=== PATIENT | female | born 1955 | race Caucasian/White ===

== ENCOUNTER 2018-05-26 14:06 | Emergency (ER) | payer OTHER ==
[2018-05-26] MEDS ORDERED: ALPRAZolam 0.25 MG TABLET PO ONE (14:14)
--- NOTE | 2018-05-26 14:15 | PDOC ---
History of Present Illness - General History Source: Patient Exam Limitations: No Limitations <Ha Tim - Last Filed: 05/26/18 15:33> <Macario Snider - Last Filed: 05/26/18 18:17> - General Stated Complaint: CHEST PAIN Time Seen by Provider: 05/26/18 14:14 - History of Present Illness Initial Comments: 05/26/18 15:33 The patient is a 63 year old female with a significant PMH of diabetes, hypertension, anxiety, appendectomy and cholecystectomy who presents to the emergency department with chest pain since earlier this afternoon. The patients has been overheard stating that she wants to go with her mother, who passed in the ER several hours ago. The patient states that she began to feel some associated chest pressure soon after being notified of her mother's . The patient has been tearful at bedside. No other complaints at bedside. (Ha Tim) Past History <Ha Tim - Last Filed: 05/26/18 15:33> - Past Medical History Diabetes: Yes (NEW ONSET DM2) HTN: Yes - Surgical History Appendectomy: Yes Cholecystectomy: Yes - Suicide/Smoking/Psychosocial Hx Smoking Status: No Smoking History: Never smoked Number of Cigarettes Smoked Daily: 0 <Macario Snider - Last Filed: 05/26/18 18:17> - Past Medical History Allergies/Adverse Reactions: Allergies Allergy/AdvReac Type Severity Reaction Status Date / Time codeine [Codeine] Allergy Verified 05/26/18 14:33 Home Medications: Ambulatory Orders Alprazolam [Xanax] 0.5 mg PO DAILY 11/12/12 Atenolol [Tenormin] 25 mg PO DAILY 11/12/12 Duloxetine HCl [Cymbalta] 60 mg PO HS 11/22/12 Ibuprofen/Famotidine [Duexis 800-26.6 mg Tablet] 1 each PO DAILY 11/22/12 Atenolol [Tenormin -] 25 mg PO DAILY #0 tablet 11/24/12 Gabapentin [Neurontin] 400 mg PO TID #0 capsule 11/24/12 Ondansetron [Zofran -] 4 mg PO BID PRN #10 tablet 11/24/12 clonazePAM [Klonopin -] 0.5 mg PO BID #0 tablet 11/24/12 Review of Systems - Review of Systems Able to Perform ROS?: Yes <Ha Tim - Last Filed: 05/26/18 15:33> <Macario Snider - Last Filed: 05/26/18 18:17> - Review of Systems Comments:: 05/26/18 15:33 Constitutional - Pt denies Fever, Chills, weakness, HEENT: denies vision changes, sore throat Respiratory: Denies cough, sob, hemoptysis Cardiac: (+)chest pressure. denies palpitations, light headedness, leg swelling Abd/GI: denies abd pain, nausea, vomiting, blood per rectum, melena, diarrhea : denies dysuria, frequency, discharge Musculskelatal - denies back pain, joint swelling skin - denies bruising, erythema, rash neurological: denies headache, numbness, focal weakness, tingling, ataxia, weakness hematologic: denies anemia, easy bruising, easy bleeding (Ha Tim) *Physical Exam <Ha Tim - Last Filed: 05/26/18 15:33> <Macario Snider - Last Filed: 05/26/18 18:17> - Vital Signs Last Vital Signs Temp Pulse Resp BP Pulse Ox 97.8 F 87 18 134/87 100 05/26/18 14:33 05/26/18 17:54 05/26/18 17:54 05/26/18 17:54 05/26/18 17:54 - Physical Exam Comments: 05/26/18 15:49 GENERAL: The patient is awake, alert, and fully oriented, Nontoxic - in no acute distress. HEAD: Normocephalic, atraumatic. EYES: extraocular movements intact, sclera anicteric, conjunctiva clear. ENT: Normal voice, Moist mucous membranes. NECK: Normal range of motion, supple LUNGS: Breath sounds equal, clear to auscultation bilaterally. No wheezes, no rhonchi, no rales. HEART: slightly tachcyardic ABDOMEN: Soft, nontender, normoactive bowel sounds. No guarding, no rebound. . No CVA tenderness EXTREMITIES: Normal range of motion, no edema. No clubbing or cyanosis. No cords, erythema, or tenderness. NEUROLOGICAL: No facial assymetry, Normal speech, PSYCH: tearful affect SKIN: Warm, Dry, normal turgor, (Macario Snider) Heart Score/ECG Review <Ha Tim - Last Filed: 05/26/18 15:33> <Macario Snider - Last Filed: 05/26/18 18:17> - ECG Impressions Comment:: 05/26/18 17:49 Twelve-lead EKG was performed and reviewed by me. There is normal sinus rhythm with a normal rate. rate of 90 The axis is normal. (Macario Snider) ED Treatment Course - LABORATORY CBC & Chemistry Diagram: 05/26/18 16:12 05/26/18 16:12 <Macario Snider - Last Filed: 05/26/18 18:17> - ADDITIONAL ORDERS Additional order review: Laboratory Results 05/26/18 16:12 Sodium 141 Potassium 3.6 Chloride 108 H Carbon Dioxide 21 Anion Gap 11 BUN 10 Creatinine 0.7 Creat Clearance w eGFR > 60 Random Glucose 111 H Calcium 9.9 Total Bilirubin 1.0 AST 19 ALT 32 Alkaline Phosphatase 52 Creatine Kinase 65 Troponin I < 0.02 Total Protein 7.3 Albumin 4.2 05/26/18 16:12 RBC 5.48 H MCV 85.2 MCHC 32.9 RDW 13.2 MPV 8.5 Neutrophils % 76.6 Lymphocytes % 16.2 D Monocytes % 6.7 D Eosinophils % 0.1 Basophils % 0.4 D - Medications Given in the ED: ED Medications Discontinued Medications Generic Name Dose Route Start Last Admin Trade Name Forestq PRN Reason Stop Dose Admin Acetaminophen 650 mg 05/26/18 17:21 05/26/18 17:53 Tylenol - PO 05/26/18 17:22 650 mg ONCE ONE Administration Alprazolam 0.25 mg 05/26/18 14:14 05/26/18 14:38 Xanax - PO 05/26/18 14:15 0.25 mg ONCE ONE Administration Sodium Chloride 1,000 mls @ 1,000 mls/hr 05/26/18 17:21 05/26/18 17:54 Normal Saline - IV 05/26/18 18:20 Not Given .Q1H ONE Metoclopramide HCl 10 mg 05/26/18 17:21 05/26/18 17:53 Reglan Injection - IVPUSH 05/26/18 17:22 Not Given ONCE ONE Metoclopramide HCl 10 mg 05/26/18 17:49 05/26/18 17:53 Reglan - PO 05/26/18 17:50 10 mg ONCE ONE Administration Medical Decision Making <Ha Tim - Last Filed: 05/26/18 15:33> <Macario Snider - Last Filed: 05/26/18 18:17> - Medical Decision Making 05/26/18 15:48 63y presenting with complaint of chest pain in setting of being told that her mother had . denies any prior symptoms pt iwth tearful affect here will obtain ekg, basic labs pt also complaining of wanting to join her motnher multiple times and is very tearful will give pt xanax suspect grief reaction 05/26/18 18:13 the patint states she does not want to hurt herself - states someone eneds to take care of her monthers arrangement dw with patient that she can return at any time if she has anythughts of harming herself. pt can return to discuss with psych. pt staes she will not hurt herself, but if she does she will come back to us. will dc with pmd fu return precautions were discussed (Macario Snider) *DC/Admit/Observation/Transfer <Ha Tim - Last Filed: 05/26/18 15:33> - Discharge Dispostion Decision to Admit order: No <Macario Snider - Last Filed: 05/26/18 18:17> Diagnosis at time of Disposition: Grief reaction Chest pain Qualifiers: Chest pain type: unspecified Qualified Code(s): R07.9 - Chest pain, unspecified - Discharge Dispostion Disposition: HOME Condition at time of disposition: Stable - Referrals Referrals: Deonte Bach MD [Staff Physician] - - Patient Instructions Printed Discharge Instructions: DI for Atypical Chest Pain Additional Instructions: If you have any concerns, including chest pain, dizziness, palpitations, any thoughts of wanting to hurt yourself please return to the emergency department for further evaluation. Print Language: IRANIAN - Post Discharge Activity - Attestations Scribe Attestion: 05/26/18 15:34 Documentation prepared by Ha Tim, acting as certified medical coding specialist for Macario Snider MD. (Ha Tim)
[2018-05-26 14:35] VITALS: TEMP 97.8; BMI 31.9
[2018-05-26] MEDS ORDERED: ALPRAZolam 0.25 MG TABLET ONE (14:36)
[2018-05-26 16:22] LABS: BASO % 0.4 % (0-2.0); EOS % 0.1 % (0-4.5); HEMATOCRIT 46.7 % (32.4-45.2); HEMOGLOBIN 15.3 GM/dL (10.7-15.3); LYMPH % 16.2 % (8-40); MCHC 32.9 g/dl (32.0-36.0); MEAN CELL VOLUME 85.2 fl (80-96); MEAN PLT VOLUME 8.5 fl (7.5-11.1); MONO % 6.7 % (3.8-10.2); NEUT % 76.6 % (42.8-82.8); PLATELET COUNT 312 K/MM3 (134-434); RBC 5.48 M/mm3 (3.60-5.2); RDW 13.2 % (11.6-15.6); WHITE BLOOD COUNT 11.9 K/mm3 (4.0-10.0)
[2018-05-26 16:56] LABS: ALBUMIN 4.2 g/dl (3.4-5.0); ALK PHOS 52 U/L (45-117); ANION GAP 11 MMOL/L (8-16); BLOOD UREA NITROGEN 10 mg/dL (7-18); CALCIUM 9.9 mg/dL (8.5-10.1); CHLORIDE 108 mmol/L (98-107); CO2 21 mmol/L (21-32); CREATININE 0.7 mg/dL (0.55-1.3); GLUCOSE,RANDOM 111 mg/dL (74-106); POTASSIUM 3.6 mmol/L (3.5-5.1); SGOT/AST 19 U/L (15-37); SGPT/ALT 32 U/L (13-61); SODIUM 141 mmol/L (136-145); TOT PROT 7.3 g/dl (6.4-8.2)
[2018-05-26] MEDS ORDERED: ACETAMINOPHEN 325 MG TABLET (FP) PO ONE (17:21)
[2018-05-26] MEDS ORDERED: METOCLOPRAMIDE HCL INJECTION 10 MG/2 ML VIAL IVPUSH ONE (17:21)
[2018-05-26] MEDS ORDERED: SODIUM CHLORIDE 1,000 ML IV ONE (17:21)
[2018-05-26] MEDS ORDERED: ACETAMINOPHEN 325 MG TABLET (FP) ONE (17:49)
[2018-05-26] MEDS ORDERED: METOCLOPRAMIDE HCL 10 MG TABLET (FP) PO ONE ×2 (17:49)
[2018-05-26 17:55] VITALS: BP 134/87; PULSE 87
--- NOTE | 2018-05-27 18:04 | EKG ---
Test Reason : Blood Pressure : / mmHG Vent. Rate : 090 BPM Atrial Rate : 090 BPM P-R Int : 142 ms QRS Dur : 076 ms QT Int : 350 ms P-R-T Axes : 041 -06 024 degrees QTc Int : 428 ms POOR DATA QUALITY, INTERPRETATION MAY BE ADVERSELY AFFECTED NORMAL SINUS RHYTHM POSSIBLE LEFT ATRIAL ENLARGEMENT BORDERLINE ECG WHEN COMPARED WITH ECG OF 22-NOV-2012 12:38, VENT. RATE HAS INCREASED BY 34 BPM INVERTED T WAVES HAVE REPLACED NONSPECIFIC T WAVE ABNORMALITY IN ANTERIOR LEADS Confirmed by SANDRA HOUSER MD ([id number]) on 05/27/2018 6:04:02 PM Referred By: Confirmed By:SANDRA HOUSER MD
== END 2018-05-26 18:33 | disposition home or self-care (01) ==
LOC: JER 14:06
DX: R07.9 Chest pain, unspecified (principal); F43.29 Adjustment disorder with other symptoms; Z63.4 Disappearance and death of family member; I10 Essential (primary) hypertension; E11.9 Type 2 diabetes mellitus without complications; Z79.84 Long term (current) use of oral hypoglycemic drugs
CPT/HCPCS: 36415; 80053; 82550; 84484; 85025; 93005; 93010; 99282-25

== ENCOUNTER 2018-06-09 15:10 | Emergency (ER) | payer OTHER ==
[2018-06-09] MEDS ORDERED: ASPIRIN 81 MG CHEWABLE TABLETS PO ONE (16:20)
--- NOTE | 2018-06-09 16:24 | PDOC ---
Rapid Medical Evaluation Chief Complaint: Chest Pain Time Seen by Provider: 06/09/18 16:18 Medical Evaluation: Allergies Allergy/AdvReac Type Severity Reaction Status Date / Time codeine [Codeine] Allergy Verified 05/26/18 14:33 06/09/18 16:19 c/o chest pain at 1.30pm while sitting in the car today. HRT 140 today in the pharmacy. recently lost mom and is very upset. PMHX: herniated disc pmd: Dr. Alyssia blackman Pe: patient alert ox3. A: chest pain P: labs patient to the ER for further management of care. Discharge Disposition - Diagnosis Chest pain Qualifiers: Chest pain type: unspecified Qualified Code(s): R07.9 - Chest pain, unspecified - Discharge Dispostion Last Admission D/C Date: 11/24/12 - Referrals Referrals: Alyssia Blackman MD [Primary Care Provider] - - Patient Instructions - Post Discharge Activity
[2018-06-09 16:28] VITALS: BP 135/87; PULSE 102; TEMP 98.3; BMI 31.4
[2018-06-09 17:29] LABS: BASO % 0.4 % (0-2.0); EOS % 0.5 % (0-4.5); HEMOGLOBIN 16.6 GM/dL (10.7-15.3); MCH 28.9 pg (25.7-33.7); MCHC 33.8 g/dl (32.0-36.0); MEAN CELL VOLUME 85.5 fl (80-96); MEAN PLT VOLUME 8.6 fl (7.5-11.1); MONO % 8.6 % (3.8-10.2); NEUT % 62.5 % (42.8-82.8); PLATELET COUNT 310 K/MM3 (134-434); RBC 5.73 M/mm3 (3.60-5.2); RDW 13.4 % (11.6-15.6); WHITE BLOOD COUNT 10.1 K/mm3 (4.0-10.0)
[2018-06-09 17:32] LABS: URINE APPEARANCE CLOUDY; URINE BILIRUBIN NEGATIVE (<2.0 mg/dL); URINE COLOR AMBER; URINE GLUCOSE (UA) NEGATIVE (NEGATIVE); URINE KETONE 1+ (NEGATIVE); URINE LEUK ESTERASE 2+ (NEGATIVE); URINE NITRITE NEGATIVE (NEGATIVE); URINE PROTEIN 1+ (NEGATIVE); URINE UROBILINOGEN NEGATIVE mg/dL (0.2-1.0)
[2018-06-09 17:45] LABS: EPI CELLS MODERATE /HPF (FEW); URINE BACTERIA FEW /hpf (NONE SEEN); URINE MUCUS MANY
[2018-06-09 17:57] LABS: INR 1.07 (0.83-1.09); PROTHROMBIN TIME (PATIENT) 12.6 SEC (9.7-13.0)
--- NOTE | 2018-06-09 18:04 | PDOC ---
History of Present Illness - General Chief Complaint: Chest Pain Stated Complaint: CHEST PAIN Time Seen by Provider: 06/09/18 16:18 History Source: Patient Exam Limitations: No Limitations - History of Present Illness Initial Comments: 06/09/18 17:56 Pt is a 63yo f with PMH of HTN, anxiety, herniated discs presenting to ED by recommendation of PMD for evaluation of chest pain, R facial numbness. Pt said around 4 hours ago she was walking up her driveway when she felt L sided chest pain described as a heaviness associated with SOB and R facial numbness. PT took 2 full strength ASA and stated symptoms lasted 1 hour after. She checked her bp at home, said her HR was 130 and she took her BP med that she had not taken earlier. Pt said she was crying when this happened. Pt recently lost her mother 2 weeks ago and has been feeling depressed since. She admits to loss of appetite, difficulty starting and maintaining sleep. She denies suicidal/ homicidal ideation, hallucinations, headache, changes in vision, abdominal pain , n/v/d, fevers, recent illnesses. Pt said she was diagnosed with UTI and was started on antibiotics but thinks that the strength was not right. She was recently at [facility] but did not like her therapist and is requesting a new one. PMD: [facility] PMH: see hpi PSH: appendectomy, cholecystectomy, hysterectomy Meds: atenolol, gabapentin Social: denies Allergies: codeine (dizziness) Past History - Past Medical History Allergies/Adverse Reactions: Allergies Allergy/AdvReac Type Severity Reaction Status Date / Time codeine [Codeine] Allergy Verified 06/09/18 16:25 Home Medications: Ambulatory Orders Alprazolam [Xanax] 0.5 mg PO DAILY 11/12/12 Atenolol [Tenormin] 25 mg PO DAILY 11/12/12 Duloxetine HCl [Cymbalta] 60 mg PO HS 11/22/12 Ibuprofen/Famotidine [Duexis 800-26.6 mg Tablet] 1 each PO DAILY 11/22/12 Atenolol [Tenormin -] 25 mg PO DAILY #0 tablet 11/24/12 Gabapentin [Neurontin] 400 mg PO TID #0 capsule 11/24/12 Ondansetron [Zofran -] 4 mg PO BID PRN #10 tablet 11/24/12 clonazePAM [Klonopin -] 0.5 mg PO BID #0 tablet 11/24/12 COPD: No Diabetes: Yes (NEW ONSET DM2) HTN: Yes - Surgical History Appendectomy: Yes Cholecystectomy: Yes - Suicide/Smoking/Psychosocial Hx Smoking Status: No Smoking History: Never smoked Have you smoked in the past 12 months: No Number of Cigarettes Smoked Daily: 0 Hx Alcohol Use: No Drug/Substance Use Hx: No *Physical Exam - Vital Signs Last Vital Signs Temp Pulse Resp BP Pulse Ox 98.3 F 102 H 18 135/87 100 06/09/18 16:25 06/09/18 16:25 06/09/18 16:25 06/09/18 16:25 06/09/18 17:19 ED Treatment Course - LABORATORY CBC & Chemistry Diagram: 06/09/18 17:17 06/09/18 17:17 - ADDITIONAL ORDERS Additional order review: Laboratory Results 06/09/18 17:18 Urine Color Thelma Urine Appearance Cloudy Urine pH 5.0 Ur Specific [place] 1.025 Urine Protein 1+ H Urine Glucose (UA) Negative Urine Ketones 1+ H Urine Blood Negative Urine Nitrite Negative Urine Bilirubin Negative Urine Urobilinogen Negative Ur Leukocyte Esterase 2+ H Urine WBC (Auto) 8 Urine RBC (Auto) 1 Ur Epithelial Cells Moderate Urine Bacteria Few Urine Mucus Many 06/09/18 17:17 RBC 5.73 H MCV 85.5 MCHC 33.8 RDW 13.4 MPV 8.6 Neutrophils % 62.5 Lymphocytes % 28.0 D Monocytes % 8.6 Eosinophils % 0.5 D Basophils % 0.4 - Medications Given in the ED: ED Medications Discontinued Medications Generic Name Dose Route Start Last Admin Trade Name Freq PRN Reason Stop Dose Admin Aspirin 162 mg 06/09/18 16:20 06/09/18 17:30 Asa - PO 06/09/18 16:21 Not Given ONCE ONE Medical Decision Making - Medical Decision Making 06/09/18 18:03 Pt is a 63yo f with PMH of HTN, anxiety, herniated discs presenting to ED by recommendation of PMD for evaluation of chest pain, R facial numbness. + requesting new therapist. *DC/Admit/Observation/Transfer Diagnosis at time of Disposition: Grief reaction Chest pain Qualifiers: Chest pain type: unspecified Qualified Code(s): R07.9 - Chest pain, unspecified - Discharge Dispostion Disposition: HOME Condition at time of disposition: Good Decision to Admit order: No - Referrals Referrals: Alyssia De La Garza MD [Primary Care Provider] - Charity Huggins MD [Staff Physician] - - Patient Instructions Printed Discharge Instructions: DI for Atypical Chest Pain, DI for Chest Pain Additional Instructions: You were seen here today for chest pain and urinalysis. Your tests were normal. The urine test still shows an infection. I have sent a new prescription for another antibiotic to your pharmacy. Please take as directed. You can call Dr. Huggins, psychiatrist. His number is Come back to the emergency room if you feel like hurting yourself or others, if you have hallucinations, if you start feeling depressed, if you develop fever, worsening urinary symptoms or any new concerning symptom. Thank you - Post Discharge Activity
[2018-06-09 18:14] LABS: ALBUMIN 4.3 g/dl (3.4-5.0); ALK PHOS 57 U/L (45-117); ANION GAP 9 MMOL/L (8-16); BILIRUBIN,TOTAL 1.1 mg/dL (0.2-1); BLOOD UREA NITROGEN 15 mg/dL (7-18); CALCIUM 10.1 mg/dL (8.5-10.1); CHLORIDE 103 mmol/L (98-107); CO2 27 mmol/L (21-32); CREATININE 0.9 mg/dL (0.55-1.3); GLUCOSE,RANDOM 95 mg/dL (74-106); MAGNESIUM 2.4 mg/dL (1.8-2.4); POTASSIUM 3.7 mmol/L (3.5-5.1); SGOT/AST 21 U/L (15-37); SGPT/ALT 35 U/L (13-61); SODIUM 139 mmol/L (136-145); TOT PROT 7.5 g/dl (6.4-8.2)
--- NOTE | 2018-06-09 18:21 | PDOC ---
Attending Attestation - HPI HPI: 06/09/18 18:40 The patient is a 63 year old female with a significant PMH of paraesthesias, diabetes, hypertension and anxiety who presents to the emergency department from her pcp for evaluation of chest pain since earlier today. The patient reports that she was walking up her driveway earlier today when she felt an onset of left sided chest pain. She describes her chest pain as a heaviness and associated with shortness of breath. The patient also reports some associated right facial numbness with her chest pain. It is noted that the patient recently lost her mother about 2 weeks ago and, subsequently has been feeling depressed and experiencing loss of appetite. The patient reports being seen at [facility] recently but was unhappy with her therapist. The patient denies any suicidal ideation, hallucinations, headache, vision change, or abdominal pain. She denies any fever, chills, nausea, vomiting, diarrhea, constipation or urinary symptoms. She denies any dizziness. The patient denies any other complaints. PCP: Dr. De La Garza Documentation prepared by Ha Tim, acting as lead medical technologist for Amparo Lorenzo MD. <Ha Tim - Last Filed: 06/09/18 18:40> - Resident Resident Name: Rachel Valdez - ED Attending Attestation I have performed the following: I have examined & evaluated the patient, The case was reviewed & discussed with the resident, I agree w/resident's findings & plan, Exceptions are as noted - Physicial Exam PE: 06/09/18 18:20 GENERAL: The patient is in no acute distress. LUNGS: Breath sounds equal, clear to auscultation bilaterally. No wheezes, and no crackles. HEART:Regular rate and rhythm, normal S1 and S2 without murmur, rub or gallop. ABDOMEN: Soft, nontender, normoactive bowel sounds. No guarding, no rebound. No masses palpable. EXTREMITIES: Normal range of motion, no edema. No clubbing or cyanosis. No erythema, or tenderness. NEUROLOGICAL: Cranial nerves II through XII grossly intact. Normal speech. No focal neurological deficits. MUSCULOSKELETAL: no chest wall tenderness SKIN: Warm, Dry, normal turgor, no rashes or lesions noted. - Medical Decision Making 06/09/18 18:20 Laboratory Tests 06/09/18 06/09/18 06/09/18 17:17 17:17 17:17 WBC 10.1 H Hgb 16.6 H Hct 49.0 H Plt Count 310 INR 1.07 Creatine Kinase 42 Troponin I < 0.02 Urine Blood Urine Nitrite Ur Leukocyte Esterase Urine WBC (Auto) Urine RBC (Auto) 06/09/18 17:18 WBC Hgb Hct Plt Count INR Creatine Kinase Troponin I Urine Blood Negative Urine Nitrite Negative Ur Leukocyte Esterase 2+ H Urine WBC (Auto) 8 Urine RBC (Auto) 1 06/09/18 19:05 Will give Keflex for possible UTI (pt still has dysuria) Pt to follow up with dr lyon Pt asked to return if for any reason she feels like she would harm herself or anyone else <Amparo Lorenzo - Last Filed: 06/09/18 19:06>
[2018-06-09] MEDS ORDERED: CEPHALEXIN MONOHYDRATE 500 MG CAPSULE (UD) PO ONE (18:52)
[2018-06-09] MEDS ORDERED: ONDANSETRON *ODT* 4 MG TABLET SL ONE (18:52)
[2018-06-09] MEDS ORDERED: ONDANSETRON *ODT* 4 MG TABLET ONE (18:57)
[2018-06-09] MEDS ORDERED: CEPHALEXIN MONOHYDRATE 500 MG CAPSULE (UD) ONE (18:57)
--- NOTE | 2018-06-10 12:42 | EKG ---
Test Reason : Blood Pressure : / mmHG Vent. Rate : 093 BPM Atrial Rate : 093 BPM P-R Int : 130 ms QRS Dur : 084 ms QT Int : 342 ms P-R-T Axes : 044 -01 039 degrees QTc Int : 425 ms NORMAL SINUS RHYTHM POSSIBLE LEFT ATRIAL ENLARGEMENT POOR R WAVE PROGRESSION NONSPECIFIC ST ABNORMALITY WHEN COMPARED WITH ECG OF 26-MAY-2018 17:47, NO SIGNIFICANT CHANGE WAS FOUND Confirmed by BARRETT HELM MD ([id number]) on 06/10/2018 12:42:24 PM Referred By: Confirmed By:BARRETT HELM MD
== END 2018-06-09 19:04 | disposition home or self-care (01) ==
LOC: JER 15:10
DX: F43.20 Adjustment disorder, unspecified (principal); Z63.4 Disappearance and death of family member; I10 Essential (primary) hypertension; E11.9 Type 2 diabetes mellitus without complications; F41.9 Anxiety disorder, unspecified
CPT/HCPCS: 36415; 71046-TC-FY; 80053; 81003; 81015; 82550; 83735; 84484; 85025; 85610; 87086; 93005; 93010; 99284-25; Q0162

== ENCOUNTER 2018-07-08 10:53 | Emergency (ER) | payer OTHER ==
[2018-07-08 11:03] VITALS: TEMP 98.2; BMI 29.9
--- NOTE | 2018-07-08 12:20 | PDOC ---
History of Present Illness - General Chief Complaint: Blood Pressure Problem Stated Complaint: BLOOD PRESSURE PROBLEM History Source: Patient Exam Limitations: No Limitations - History of Present Illness Initial Comments: 07/08/18 12:20 Patient is a 63 -year-old female with history of hypertension, c/o palpitations , heartburn, headache and nose bleed. Patient states has a h/o palpitation x 6 months described as having extra beats, for which she has has a work up at the [employer] office. Has a holter monitor x 1 week which showed the extra beats. She was given Toprol with some relief in the symptoms but for the past 3 weeks her palpitations has been intermittent but persistent. This 4 AM states she woke up with palpitations which was assoc/w heart burn, a headache then nose bleed. She took her b/p and it was 150/96. Denies chest pain, sob, dizziness. States she took the Toprol but the symptoms continued. States she has she has been stressed the past 3 weeks due to the of her mother. Famhx: bother and father with CABG before age 49 PMD: Dr. De La Garza CARDIO: Dr. Maldonado PMHX: as above PSOCHX: neg GENERAL/CONSTITUTIONAL: [No fever or chills. No weakness. No weight change.] HEAD, EYES, EARS, NOSE AND THROAT: [No change in vision. No ear pain or discharge. No sore throat.] CARDIOVASCULAR: [No chest pain or shortness of breath.] RESPIRATORY: [No cough, wheezing, or hemoptysis.] GASTROINTESTINAL: [No nausea, vomiting, diarrhea or constipation. No rectal bleeding.] GENITOURINARY: [No dysuria, frequency, or change in urination.] MUSCULOSKELETAL: [No joint or muscle swelling or pain. No neck or back pain.] SKIN AND BREASTS: [No rash or easy bruising.] NEUROLOGIC: [No headache, vertigo, loss of consciousness, or loss of sensation.] PSYCHIATRIC: [No depression or anxiety.] ENDOCRINE: [No increased thirst. No abnormal weight change.] HEMATOLOGIC/LYMPHATIC: [No anemia, easy bleeding, or history of blood clots.] ALLERGIC/IMMUNOLOGIC: [No hives or skin allergy. No latex allergy.] GENERAL: [The patient is awake, alert, and fully oriented, in no acute distress. ] HEAD: [Normal with no signs of trauma.] EYES: [Pupils equal, round and reactive to light, extraocular movements intact, sclera anicteric, conjunctiva clear.] ENT: [Ears normal, nares patent, oropharynx clear without exudates. Moist mucous membranes.] NECK: [Normal range of motion, supple without lymphadenopathy, JVD, or masses.] LUNGS: [Breath sounds equal, clear to auscultation bilaterally. No wheezes, and no crackles.] HEART: [Regular rate and rhythm, normal S1 and S2 without murmur, rub.] ABDOMEN: [Soft, nontender, normoactive bowel sounds. No guarding, no rebound. No masses.] EXTREMITIES: [Normal range of motion, no edema. No clubbing or cyanosis. No cords, erythema, or tenderness.] NEUROLOGICAL: [Cranial nerves II through XII grossly intact. Normal speech, normal gait.] PSYCH: [Normal mood, normal affect.] SKIN: [Warm, Dry, normal turgor, no rashes or lesions noted.] Past History - Past Medical History Allergies/Adverse Reactions: Allergies Allergy/AdvReac Type Severity Reaction Status Date / Time codeine [Codeine] Allergy Verified 07/08/18 11:03 Home Medications: Ambulatory Orders Atenolol [Tenormin] 25 mg PO DAILY 11/12/12 Gabapentin [Neurontin] 400 mg PO TID #0 capsule 11/24/12 Ondansetron [Zofran -] 4 mg PO BID PRN #10 tablet 11/24/12 clonazePAM [Klonopin -] 0.5 mg PO BID #0 tablet 11/24/12 Quetiapine Fumarate [Seroquel -] 50 mg PO HS 07/08/18 COPD: No Diabetes: Yes (NEW ONSET DM2) HTN: Yes - Surgical History Appendectomy: Yes Cholecystectomy: Yes - Suicide/Smoking/Psychosocial Hx Smoking Status: No Smoking History: Never smoked Have you smoked in the past 12 months: No Number of Cigarettes Smoked Daily: 0 Hx Alcohol Use: No Drug/Substance Use Hx: No *Physical Exam - Vital Signs Last Vital Signs Temp Pulse Resp BP Pulse Ox 98.2 F 78 18 129/83 98 07/08/18 11:00 07/08/18 17:26 07/08/18 17:26 07/08/18 17:26 07/08/18 11:00 Moderate Sedation - Procedure Monitoring Vital Signs: Procedure Monitoring Vital Signs Temperature 98.2 F 07/08/18 11:00 Pulse Rate 78 07/08/18 17:26 Respiratory Rate 18 07/08/18 17:26 Blood Pressure 129/83 07/08/18 17:26 O2 Sat by Pulse Oximetry (%) 98 07/08/18 11:00 ED Treatment Course - LABORATORY CBC & Chemistry Diagram: 07/08/18 13:07 07/08/18 13:07 - ADDITIONAL ORDERS Additional order review: Laboratory Results 07/08/18 07/08/18 13:34 13:07 Sodium 140 Potassium 4.2 Chloride 105 Carbon Dioxide 24 Anion Gap 11 BUN 12 Creatinine 0.7 Creat Clearance w eGFR > 60 Random Glucose 98 Calcium 9.4 Total Bilirubin 0.8 AST 24 ALT 26 Alkaline Phosphatase 50 Creatine Kinase 36 92 Troponin I < 0.02 < 0.02 Total Protein 6.8 Albumin 3.8 07/08/18 13:07 RBC 5.19 MCV 83.7 MCHC 34.9 RDW 12.9 MPV 8.7 Neutrophils % 67.0 Lymphocytes % 23.8 Monocytes % 8.2 Eosinophils % 0.4 Basophils % 0.6 - RADIOLOGY Radiology Studies Ordered: Category Date Time Status CHEST PA & LAT [RAD] Stat Radiology 07/08/18 12:49 Taken - Medications Given in the ED: ED Medications Discontinued Medications Generic Name Dose Route Start Last Admin Trade Name Freq PRN Reason Stop Dose Admin Acetaminophen 1,000 mg 07/08/18 14:38 07/08/18 14:45 Ofirmev Injection - IVPB 07/08/18 14:39 1,000 mg ONCE ONE Administration Famotidine/Sodium Chloride 20 mg in 50 mls @ 100 mls/hr 07/08/18 12:49 13:16 Pepcid 20 Mg Premixed Ivpb - IVPB 07/08/18 13:18 100 mls/hr ONCE ONE Administration Sodium Chloride 1,000 mls @ 1,000 mls/hr 07/08/18 14:38 07/08/18 14:44 Normal Saline - IV 07/08/18 15:37 1,000 mls/hr ASDIR STA Administration Medical Decision Making - Medical Decision Making 07/08/18 12:20 Patient is a 63 -year-old female with history of hypertension, c/o palpitations , heartburn, headache and nose bleed. patient has strong family h/o of cardiac history would benefit from a cardiac work up Endorsed to TATIAN[facility] Fine for further work up *DC/Admit/Observation/Transfer Diagnosis at time of Disposition: Palpitations - Discharge Dispostion Disposition: HOME Condition at time of disposition: Good - Referrals Referrals: Peter Balderas MD [Staff Physician] - (Call Tuesday) Alyssia De La Garza MD [Primary Care Provider] - - Patient Instructions Printed Discharge Instructions: DI for Palpitations Additional Instructions: Discharge Instructions: -All of your lab tests and EKG were normal -Please continue taking all of your medications as prescribed -Call your [employer] on Tuesday - Post Discharge Activity
[2018-07-08] MEDS ORDERED: FAMOTIDINE 20 MG/50 ML IVPB 20 MG/50 ML MG IVPB ONE ×2 (12:49→12:58)
[2018-07-08 13:17] LABS: BASO % 0.6 % (0-2.0); EOS % 0.4 % (0-4.5); HEMATOCRIT 43.4 % (32.4-45.2); HEMOGLOBIN 15.2 GM/dL (10.7-15.3); LYMPH % 23.8 % (8-40); MCH 29.2 pg (25.7-33.7); MCHC 34.9 g/dl (32.0-36.0); MEAN CELL VOLUME 83.7 fl (80-96); MEAN PLT VOLUME 8.7 fl (7.5-11.1); MONO % 8.2 % (3.8-10.2); PLATELET COUNT 249 K/MM3 (134-434); RBC 5.19 M/mm3 (3.60-5.2); RDW 12.9 % (11.6-15.6); WHITE BLOOD COUNT 6.9 K/mm3 (4.0-10.0)
--- NOTE | 2018-07-08 13:22 | PDOC ---
History of Present Illness - General Chief Complaint: Blood Pressure Problem Stated Complaint: BLOOD PRESSURE PROBLEM Time Seen by Provider: 07/08/18 13:11 History Source: Patient Exam Limitations: No Limitations - History of Present Illness Initial Comments: CHIEF COMPLAINT: 63 y/o afebrile female with PMH HTN and palpitations c/o palpitations, heartburn, FERRIS and nose bleed. HISTORY OF PRESENT ILLNESS: The patient states 6 months ago she was seen by a wearing apparel presser for palpitations, wore a holter monitor and was diagnosed with "extra beats". She is taking Toprol for her palpitations but states for the past few weeks they have been persistent. At 4am she woke up from the palpitations, which associates with heartburn. Then she developed a FERRIS and nose bleed. She denies f/c, n/v/d, CP, SOB, dizziness. She does admit she's been stressed for the past 3 weeks due to the of her mother. PCP - Dr. De La Garza Cardio - Dr. Balderas Vital signs on arrival are within normal limits. REVIEW OF SYSTEMS: GENERAL/CONSTITUTIONAL: No fever/chills. No weakness. No weight change. HEAD, EYES, EARS, NOSE AND THROAT: No change in vision. No ear pain or discharge. No sore throat. +nose bleed CARDIOVASCULAR: +palpiatations. No chest pain or shortness of breath. RESPIRATORY: No cough, wheezing, or hemoptysis. GASTROINTESTINAL: +heartburn. No nausea, vomiting, diarrhea, constipation. GENITOURINARY: No dysuria, frequency, or change in urination. MUSCULOSKELETAL: No joint or muscle swelling or pain. No neck or back pain. SKIN: No rash or easy bruising. NEUROLOGIC: +headache. No vertigo, loss of consciousness, or loss of sensation. PHYSICAL EXAM: GENERAL: The patient is awake, alert, and fully oriented, in no acute distress. HEAD: Normal with no signs of trauma. ENT: Pupils equal, round and reactive to light, extraocular movements intact, sclera anicteric, conjunctiva clear. Neck supple. LUNGS: Clear to auscultation bilaterally. Normal excursion. No respiratory distress or use of accessory muscles. CV: RRR, S1/S2, no MRG. Cap refill < 2 sec. ABDOMEN: Soft, non-distended, non-tender even to deep palpation, no hepatomegaly or splenomegaly, no masses. EXTREMITIES: Normal range of motion, no edema. NEUROLOGICAL: Normal speech, normal gait. CN II-XII grossly intact. SKIN: Warm, dry, normal turgor, no rashes or lesions noted. Past History - Past Medical History Allergies/Adverse Reactions: Allergies Allergy/AdvReac Type Severity Reaction Status Date / Time codeine [Codeine] Allergy Verified 07/08/18 11:03 Home Medications: Ambulatory Orders Atenolol [Tenormin] 25 mg PO DAILY 11/12/12 Gabapentin [Neurontin] 400 mg PO TID #0 capsule 11/24/12 Ondansetron [Zofran -] 4 mg PO BID PRN #10 tablet 11/24/12 clonazePAM [Klonopin -] 0.5 mg PO BID #0 tablet 11/24/12 Quetiapine Fumarate [Seroquel -] 50 mg PO HS 07/08/18 COPD: No Diabetes: Yes (NEW ONSET DM2) HTN: Yes - Surgical History Appendectomy: Yes Cholecystectomy: Yes - Suicide/Smoking/Psychosocial Hx Smoking Status: No Smoking History: Never smoked Have you smoked in the past 12 months: No Number of Cigarettes Smoked Daily: 0 Hx Alcohol Use: No Drug/Substance Use Hx: No *Physical Exam - Vital Signs Last Vital Signs Temp Pulse Resp BP Pulse Ox 98.2 F 77 17 127/79 98 07/08/18 11:00 07/08/18 11:00 07/08/18 11:00 07/08/18 11:00 07/08/18 11:00 Heart Score/ECG Review - ECG Intrepretation Comment:: Twelve-lead EKG was performed and reviewed by Dr. Medellin. There is normal sinus rhythm with a normal rate. The axis is normal. The intervals are normal. There are no ST or T wave abnormalities. Impression: Normal twelve-lead EKG Moderate Sedation - Procedure Monitoring Vital Signs: Procedure Monitoring Vital Signs Temperature 98.2 F 07/08/18 11:00 Pulse Rate 77 07/08/18 11:00 Respiratory Rate 17 07/08/18 11:00 Blood Pressure 127/79 07/08/18 11:00 O2 Sat by Pulse Oximetry (%) 98 07/08/18 11:00 ED Treatment Course - LABORATORY CBC & Chemistry Diagram: 07/08/18 13:07 07/08/18 13:07 - ADDITIONAL ORDERS Additional order review: Laboratory Results 07/08/18 07/08/18 13:34 13:07 Sodium 140 Potassium 4.2 Chloride 105 Carbon Dioxide 24 Anion Gap 11 BUN 12 Creatinine 0.7 Creat Clearance w eGFR > 60 Random Glucose 98 Calcium 9.4 Total Bilirubin 0.8 AST 24 ALT 26 Alkaline Phosphatase 50 Creatine Kinase 36 92 Troponin I < 0.02 < 0.02 Total Protein 6.8 Albumin 3.8 07/08/18 13:07 RBC 5.19 MCV 83.7 MCHC 34.9 RDW 12.9 MPV 8.7 Neutrophils % 67.0 Lymphocytes % 23.8 Monocytes % 8.2 Eosinophils % 0.4 Basophils % 0.6 - Medications Given in the ED: ED Medications Discontinued Medications Generic Name Dose Route Start Last Admin Trade Name Forestq PRN Reason Stop Dose Admin Acetaminophen 1,000 mg 07/08/18 14:38 07/08/18 14:45 Ofirmev Injection - IVPB 07/08/18 14:39 1,000 mg ONCE ONE Administration Famotidine/Sodium Chloride 20 mg in 50 mls @ 100 mls/hr 07/08/18 12:49 13:16 Pepcid 20 Mg Premixed Ivpb - IVPB 07/08/18 13:18 100 mls/hr ONCE ONE Administration Sodium Chloride 1,000 mls @ 1,000 mls/hr 07/08/18 14:38 07/08/18 14:44 Normal Saline - IV 07/08/18 15:37 1,000 mls/hr ASDIR STA Administration Medical Decision Making - Medical Decision Making A/P: 63 y/o female with hx of palpitations woken up by palpitations at 4am despite toprol. She states she also had associated heartburn, FERRIS and nose bleed. Plan is as follows: 1. EKG 2. CXR 3. Labs Labs unremarkable EKG normal CXR IMPRESSION: (wet read) no change from prior of 06/09/18 Gave patient fluids and Iv tylenol for headache She feels better. Gave her all of her results. Will discharge to home with instructions to call her Hr Clerk on Tuesday. The patient verbalizes understanding of all instructions, has no further questions and is awaiting discharge. *DC/Admit/Observation/Transfer Diagnosis at time of Disposition: Palpitations - Discharge Dispostion Disposition: HOME Condition at time of disposition: Good - Referrals Referrals: Alyssia De La Garza MD [Primary Care Provider] - Peter Balderas MD [Staff Physician] - (Call Tuesday) - Patient Instructions Printed Discharge Instructions: DI for Palpitations Additional Instructions: Discharge Instructions: -All of your lab tests and EKG were normal -Please continue taking all of your medications as prescribed -Call your Hr Clerk on Tuesday - Post Discharge Activity
[2018-07-08 13:39] LABS: ALBUMIN 3.8 g/dl (3.4-5.0); ALK PHOS 50 U/L (45-117); ANION GAP 11 MMOL/L (8-16); BILIRUBIN,TOTAL 0.8 mg/dL (0.2-1); BLOOD UREA NITROGEN 12 mg/dL (7-18); CALCIUM 9.4 mg/dL (8.5-10.1); CHLORIDE 105 mmol/L (98-107); CO2 24 mmol/L (21-32); CREATININE 0.7 mg/dL (0.55-1.3); GLUCOSE,RANDOM 98 mg/dL (74-106); POTASSIUM 4.2 mmol/L (3.5-5.1); SGOT/AST 24 U/L (15-37); SGPT/ALT 26 U/L (13-61); SODIUM 140 mmol/L (136-145); TOT PROT 6.8 g/dl (6.4-8.2)
[2018-07-08] MEDS ORDERED: SODIUM CHLORIDE 1,000 ML IV STA (14:38)
[2018-07-08] MEDS ORDERED: ACETAMINOPHEN 1000 MG/100 ML VIAL (NON FORMULARY) IVPB ONE (14:38)
--- NOTE | 2018-07-08 17:06 | EKG ---
Test Reason : Blood Pressure : / mmHG Vent. Rate : 061 BPM Atrial Rate : 061 BPM P-R Int : 142 ms QRS Dur : 084 ms QT Int : 394 ms P-R-T Axes : 044 012 026 degrees QTc Int : 396 ms NORMAL SINUS RHYTHM SEPTAL INFARCT , AGE UNDETERMINED T WAVE ABNORMALITY, CONSIDER ANTERIOR ISCHEMIA ABNORMAL ECG WHEN COMPARED WITH ECG OF 09-JUN-2018 15:11, VENT. RATE HAS DECREASED BY 32 BPM SEPTAL INFARCT IS NOW PRESENT Confirmed by MD OBDULIO, JOHNATHAN ([id number]) on 07/08/2018 5:05:37 PM Referred By: Confirmed By:JOHNATHAN MAK MD
[2018-07-08 17:26] VITALS: BP 129/83; PULSE 78
== END 2018-07-08 17:25 | disposition home or self-care (01) ==
LOC: JER 10:53
PROC: 3E033GC Introduction of Other Therapeutic Substance into Peripheral Vein, Percutaneous Approach (ICD-10-PCS; principal; 2018-07-08)
PROC: 3E033NZ Introduction of Analgesics, Hypnotics, Sedatives into Peripheral Vein, Percutaneous Approach (ICD-10-PCS; 2018-07-08)
DX: R00.2 Palpitations (principal); I10 Essential (primary) hypertension; E11.9 Type 2 diabetes mellitus without complications
CPT/HCPCS: 36415; 71046-TC-FY; 80053; 82550; 84484; 85025; 93005; 93010; 96365; 96375; 99284-25; J0131; J7030

== ENCOUNTER 2018-07-13 15:50 | Emergency (ER) | payer OTHER ==
[2018-07-13 15:55] VITALS: TEMP 98.1; BMI 29.9
--- NOTE | 2018-07-13 16:18 | PDOC ---
Attending Attestation - Resident Resident Name: Courtney,Rachel - HPI HPI: 07/13/18 17:37 Pt presents to the ED complaining of throat itching and facial tingling after eating a ham sandwich and potato chips. States that she is unable to swallow, but is tolerating PO. No rash or facial swelling. - Physicial Exam PE: 07/13/18 17:38 Agree with resident exam. PAtinet is alert and oriented and in no acute distress. speaking in clear voice. No facial swelling. - Medical Decision Making 07/13/18 17:38 Pt presents to the ED complaining of face and throat itchiness after eating. Symptoms resolved after benadryl. will discharge home.
[2018-07-13] MEDS ORDERED: diphenhydrAMINE HCL 25 MG CAPSULE (FP) PO ONE (16:33)
--- NOTE | 2018-07-13 16:33 | PDOC ---
History of Present Illness - General Chief Complaint: Allergic Reaction Stated Complaint: "FLUSHED FACE, FUNNY FEELING TO THROAT" Time Seen by Provider: 07/13/18 16:10 History Source: Patient Exam Limitations: No Limitations - History of Present Illness Initial Comments: 07/13/18 16:28 Pt is a 63yo F with PMH of HTN presenting to ED with complaints of throat swelling and facial paresthesia after eating a ham and cheese sandwich roughly 2 hours ago. Pt said she started having symptoms 45 minutes after she consumed the sandwich. She felt pins and needle like sensation on her face and lips and felt like she was having difficulty swallowing. She had a similar reaction when she ate fish many years ago. PMD: Frederic PMH: see hpi Meds: see med rec Allergies: fish, codeine (sedation) Past History - Past Medical History Allergies/Adverse Reactions: Allergies Allergy/AdvReac Type Severity Reaction Status Date / Time codeine [Codeine] Allergy Verified 07/13/18 15:53 Fish Containing Products Allergy Verified 07/13/18 15:53 Home Medications: Ambulatory Orders Atenolol [Tenormin] 25 mg PO HS 11/12/12 Quetiapine Fumarate [Seroquel -] 50 mg PO HS 07/08/18 Gabapentin [Neurontin] 600 mg PO TID 07/13/18 Lisinopril/Hydrochlorothiazide [Lisinopril-Hctz 10-12.5 mg Tab] 1 each PO HS 01/23 Meloxicam 15 mg PO DAILY 07/13/18 Methocarbamol 500 mg PO DAILY 07/13/18 COPD: No Diabetes: Yes (NEW ONSET DM2) HTN: Yes - Surgical History Appendectomy: Yes Cholecystectomy: Yes - Immunization History Immunization Up to Date: Yes - Suicide/Smoking/Psychosocial Hx Smoking Status: No Smoking History: Never smoked Have you smoked in the past 12 months: No Number of Cigarettes Smoked Daily: 0 Information on smoking cessation initiated: No Hx Alcohol Use: No Drug/Substance Use Hx: No Review of Systems - Review of Systems Constitutional: No: Symptoms Reported HEENTM: Yes: See HPI, Throat Swelling, Difficulty Swallowing. No: Blurred Vision, Recent change in vision Respiratory: No: Cough, Shortness of Breath, Stridor, Wheezing Cardiac (ROS): No: Chest Pain, Lightheadedness, Palpitations, Syncope ABD/GI: No: Constipated, Diarrhea, Nausea, Vomiting : No: Symptoms Reported Musculoskeletal: No: Symptoms Reported Integumentary: No: Lesions, Lumps, Pruritus, Rash Neurological: No: Symptoms reported *Physical Exam - Vital Signs Last Vital Signs Temp Pulse Resp BP Pulse Ox 98.1 F 102 H 20 138/80 97 07/13/18 15:50 07/13/18 15:50 07/13/18 15:50 07/13/18 15:50 07/13/18 15:50 - Physical Exam General Appearance: Yes: Nourished, Appropriately Dressed. No: Apparent Distress HEENT: positive: EOMI, YOLETTE, TMs Normal, Pharynx Normal, Other (erythema around lips. No rashes, no swelling, normal orophayrnx) Neck: positive: Trachea midline, Supple. negative: Lymphadenopathy (R), Lymphadenopathy (L) Respiratory/Chest: positive: Lungs Clear, Normal Breath Sounds. negative: Labored Respiration, Crackles, Rales, Rhonchi, Stridor, Wheezing Cardiovascular: positive: Regular Rhythm, Regular Rate, S1, S2. negative: Edema , JVD, Murmur Vascular Pulses: Carotid (R): 2+, Carotid (L): 2+, Dorsalis-Pedis (R): 2+, Doralis-Pedis (L): 2+ Gastrointestinal/Abdominal: positive: Normal Bowel Sounds, Soft. negative: Guarding, Rebound, Tenderness Musculoskeletal: negative: CVA Tenderness Extremity: positive: Normal Capillary Refill Integumentary: positive: Normal Color, Dry, Warm. negative: Petechiae, Rash, Swelling Neurologic: positive: dish person II-XII NML intact, Fully Oriented, Alert, Normal Mood/ Affect, Normal Response, Motor Strength 5/5 Moderate Sedation - Procedure Monitoring Vital Signs: Procedure Monitoring Vital Signs Temperature 98.1 F 07/13/18 15:50 Pulse Rate 102 H 07/13/18 15:50 Respiratory Rate 20 07/13/18 15:50 Blood Pressure 138/80 07/13/18 15:50 O2 Sat by Pulse Oximetry (%) 97 07/13/18 15:50 Medical Decision Making - Medical Decision Making 07/13/18 16:32 Pt is a 63yo F with PMH of HTN presenting to ED with complaints of throat swelling and facial paresthesia after eating a ham and cheese sandwich roughly 2 hours ago. Pt said she started having symptoms 45 minutes after she consumed the sandwich. She felt pins and needle like sensation on her face and lips and felt like she was having difficulty swallowing. She had a similar reaction when she ate fish many years ago. Vitals: tachycardia at 102, BP 138/80 PE: slight erythema surrounding lips, no oropharyngeal swelling noted, no wheezing or stridor. No rashes or eruptions. ddx; anaphylaxis, swelling of throat, allergic reaction Will give 50mg Benadryl and reeval. Airway is clear. Low suspicion for swelling. tolerated PO. No signs of obstructing airway. PT reports feeling better. Given strict return precautions. *DC/Admit/Observation/Transfer Diagnosis at time of Disposition: Allergic reaction Qualifiers: Encounter type: initial encounter Qualified Code(s): T78.40XA - Allergy, unspecified, initial encounter - Discharge Dispostion Disposition: HOME Condition at time of disposition: Improved - Referrals Referrals: Alyssia De La Garza MD [Primary Care Provider] - - Patient Instructions Printed Discharge Instructions: DI for General Allergic Reactions Additional Instructions: You were seen here today for allergic reaction. You do not have physical signs of swelling of your throat or elsewhere and no skin rashes. You may have had a mild reaction to something you ate. I suggest refraining from anything that may have caused your reaction, this includes any dressing, bread, meats, cheeses or other food items. You can take Bendaryl if you continue to have itching. Come back to the emergency room if you have difficulty breathing, you develop a rash, you have swelling, you start vomiting or if any new concerning symptom develops. Thank you - Post Discharge Activity
[2018-07-13] MEDS ORDERED: diphenhydrAMINE HCL 50 MG CAPSULE ONE (16:37)
[2018-07-13 17:46] VITALS: BP 121/82; PULSE 88
== END 2018-07-13 17:45 | disposition home or self-care (01) ==
LOC: FER 15:50
DX: T78.40XA Allergy, unspecified, initial encounter (principal); I10 Essential (primary) hypertension
CPT/HCPCS: 99283-25

== ENCOUNTER 2020-09-03 09:47 | Day surgery (SDC) | payer OTHER ==
[2020-09-01 12:38] VITALS: BMI 29.9
[~2020-09-03 09:47] MED LIST: LACTATED RINGERS SOLUTION 1,000 ML IV SCH; ONDANSETRON 4 MG/2 ML VIAL IVPUSH PRN; PROMETHAZINE HCL 25 MG/1 ML VIAL IVPUSH PRN; oxyCODONE HCL 5 MG TABLET PO PRN
[2020-09-03] MEDS ORDERED: MIDAZOLAM HCL 2 MG/2 ML SINGLE DOSE VIAL ONE (10:50)
[2020-09-03] MEDS ORDERED: LIDOCAINE HCL 2% (50ML VIAL) INF ONE (10:55)
[2020-09-03] MEDS ORDERED: ONDANSETRON *ODT* 4 MG TABLET ONE (12:07)
[2020-09-03 12:41] VITALS: TEMP 98.4
[2020-09-03 12:47] VITALS: BP 122/58; PULSE 66
[2020-09-03] MEDS ORDERED: ONDANSETRON *ODT* 4 MG TABLET SL PRN (14:40)
== END 2020-09-03 12:30 | disposition home or self-care (01) ==
LOC: FASU 09:47
PROVIDERS: ATTEND Orthopaedic Surgery Hand Surgery
PROC: 01N50ZZ Release Median Nerve, Open Approach (ICD-10-PCS; principal; 2020-09-03 11:02)
DX: G56.01 Carpal tunnel syndrome, right upper limb (principal)
CPT/HCPCS: Q0162

== ENCOUNTER 2020-10-24 20:11 | Emergency (ER) | payer OTHER ==
[2020-10-24 20:25] VITALS: TEMP 97; BMI 28.8
[2020-10-24 22:56] LABS: EPI CELLS >36 /uL (0-25.1); HYALINE CASTS 14 /uL (0-3.1); URINE APPEARANCE CLEAR; URINE BACTERIA 27 /uL (0-1359); URINE BILIRUBIN NEGATIVE (NEGATIVE); URINE COLOR YELLOW; URINE GLUCOSE (UA) NEGATIVE (NEGATIVE); URINE KETONE TRACE (NEGATIVE); URINE LEUK ESTERASE 2+ (NEGATIVE); URINE NITRITE NEGATIVE (NEGATIVE); URINE PROTEIN NEGATIVE (NEGATIVE); URINE RBC 6 /uL (0-23.9); URINE UROBILINOGEN 0.2 mg/dL (0.2-1.0); URINE WBC 318 /uL (0-25.8)
[2020-10-24 23:18] LABS: BASO % 0.2 % (0-2.0); EOS % 0.3 % (0-4.5); HEMATOCRIT 49.4 % (32.4-45.2); HEMOGLOBIN 16.3 GM/dL (10.7-15.3); LYMPH % 16.9 % (8-40); MCH 28.5 pg (25.7-33.7); MCHC 32.9 g/dl (32.0-36.0); MEAN CELL VOLUME 86.6 fl (80-96); MEAN PLT VOLUME 8.5 fl (7.5-11.1); NEUT % 75.6 % (42.8-82.8); PLATELET COUNT 359 K/MM3 (134-434); RDW 13.6 % (11.6-15.6); WHITE BLOOD COUNT 17.5 K/mm3 (4.0-10.0)
[2020-10-24 23:54] LABS: POTASSIUM 3.7 mmol/L (3.5-5.1)
[2020-10-24 23:56] LABS: CALCIUM 10.2 mg/dL (8.5-10.1)
[2020-10-24 23:57] LABS: ALBUMIN 4.6 g/dl (3.4-5.0); BLOOD UREA NITROGEN 28.3 mg/dL (7-18)
[2020-10-25] LABS: CREATININE 0.8 mg/dL (0.55-1.3)
[2020-10-25 00:02] LABS: BILIRUBIN,TOTAL 0.8 mg/dL (0.2-1); TOT PROT 8.4 g/dl (6.4-8.2)
[2020-10-25 00:42] VITALS: BP 145/85; PULSE 85
== END 2020-10-25 00:30 | disposition home or self-care (01) ==
LOC: JER 20:11
DX: N39.0 Urinary tract infection, site not specified (principal)
CPT/HCPCS: 36415; 80053; 81003; 85025; 87086; 87186; 99283-25

== ENCOUNTER 2020-10-28 17:00 | Emergency (ER) | payer OTHER ==
[2020-10-28 17:21] VITALS: BMI 28.8
[2020-10-28] MEDS ORDERED: LIDOCAINE 5% TOPICAL PATCH TP ONE (18:22)
[2020-10-28] MEDS ORDERED: ACETAMINOPHEN 325 MG TABLET (FP) PO ONE (18:22)
[2020-10-28] MEDS ORDERED: LIDOCAINE 5% TOPICAL PATCH ONE (18:24)
[2020-10-28] MEDS ORDERED: ACETAMINOPHEN 325 MG TABLET (FP) ONE (18:24)
[2020-10-28 21:29] VITALS: BP 138/82; PULSE 87; TEMP 97.9
[2020-10-29] MEDS ORDERED: LIDOCAINE PATCH REMOVAL MC SCH (06:30)
== END 2020-10-28 21:30 | disposition home or self-care (01) ==
LOC: JER 17:00
DX: M54.9 Dorsalgia, unspecified (principal); S13.4XXA Sprain of ligaments of cervical spine, initial encounter
CPT/HCPCS: 70450-TC; 72125-TC; 99284-25

== ENCOUNTER 2022-03-14 17:25 | Emergency (ER) | payer OTHER ==
[2022-03-14 17:36] VITALS: BP 140/88; PULSE 80; RESP 16; TEMP 98.4; BMI 29.9
[2022-03-14] MEDS ORDERED: ACETAMINOPHEN 325 MG TABLET (FP) PO ONE (18:10)
[2022-03-14] MEDS ORDERED: ACETAMINOPHEN 325 MG TABLET (FP) ONE (18:12)
[2022-03-14] MEDS ORDERED: KETOROLAC TROMETHAMINE 30 MG/1 ML VIAL IM ONE (19:22)
[2022-03-14] MEDS ORDERED: KETOROLAC TROMETHAMINE 30 MG/1 ML VIAL ONE (19:31)
== END 2022-03-14 19:46 | disposition home or self-care (01) ==
LOC: JER 17:25
PROC: 3E0233Z Introduction of Anti-inflammatory into Muscle, Percutaneous Approach (ICD-10-PCS; principal; 2022-03-14)
DX: M54.2 Cervicalgia (principal); M54.50 Low back pain, unspecified; W01.0XXA Fall on same level from slipping, tripping and stumbling without subsequent striking against object, initial encounter
CPT/HCPCS: 70450-TC; 72125-TC; 72131-TC; 99285-25

== ENCOUNTER 2023-04-03 15:45 | Emergency (ER) | payer OTHER ==
[2023-04-03 15:49] VITALS: BP 140/90; PULSE 73; RESP 18; TEMP 97.6; BMI 30.2
[2023-04-03] MEDS ORDERED: DEXAMETHASONE SOD PHOSPHATE 10 MG/1 ML VIAL IM ONE (17:06)
[2023-04-03] MEDS ORDERED: DEXAMETHASONE SOD PHOSPHATE 10 MG/1 ML VIAL ONE (17:09)
== END 2023-04-03 17:12 | disposition home or self-care (01) ==
LOC: JERFT 15:45
PROC: 3E023GC Introduction of Other Therapeutic Substance into Muscle, Percutaneous Approach (ICD-10-PCS; principal; 2023-04-03)
DX: T63.441A Toxic effect of venom of bees, accidental (unintentional), initial encounter (principal); H57.11 Ocular pain, right eye; H02.841 Edema of right upper eyelid
CPT/HCPCS: 99284-25; J1100

== ENCOUNTER 2023-04-12 04:17 | Emergency (ER) | payer OTHER ==
[2023-04-12 04:30] VITALS: TEMP 98.4; BMI 29.4
[2023-04-12] MEDS ORDERED: ACETAMINOPHEN 1000 MG/100 ML BAG IVPB ONE (05:17)
[2023-04-12] MEDS ORDERED: traMADol HCL 50 MG TABLET PO ONE (05:24)
[2023-04-12] MEDS ORDERED: ACETAMINOPHEN INJECTION 100 ML IVPB ONE (05:41)
[2023-04-12] MEDS ORDERED: traMADol HCL 50 MG TABLET ONE (05:41)
[2023-04-12 06:26] LABS: BASO % 0.5 % (0-2.0); EOS % 2.2 % (0-4.5); HEMATOCRIT 42.9 % (32.4-45.2); HEMOGLOBIN 13.9 GM/dL (10.7-15.3); LYMPH % 36.9 % (8-40); MCH 27.9 pg (25.7-33.7); MCHC 32.4 g/dl (32.0-36.0); MEAN CELL VOLUME 86.3 fl (80-96); MEAN PLT VOLUME 8.5 fl (7.5-11.1); MONO % 8.6 % (3.8-10.2); NEUT % 51.8 % (42.8-82.8); PLATELET COUNT 253 10^3/uL (134-434); RBC 4.98 M/mm3 (3.60-5.2); RDW 14.3 % (11.6-15.6)
[2023-04-12 06:27] LABS: INR 1.05 (0.83-1.09); PROTHROMBIN TIME (PATIENT) 12.2 SEC (9.7-13.0)
[2023-04-12 06:30] LABS: ACTIVATED PTT 29.6 SECONDS (25.2-36.5)
[2023-04-12 06:42] LABS: POTASSIUM 4.3 mmol/L (3.5-5.1)
[2023-04-12 06:44] LABS: ALBUMIN 3.7 g/dl (3.4-5.0); CALCIUM 9.5 mg/dL (8.5-10.1)
[2023-04-12 06:45] LABS: BLOOD UREA NITROGEN 22.8 mg/dL (7-18)
[2023-04-12 06:48] LABS: CREATININE 0.9 mg/dL (0.55-1.3)
[2023-04-12 06:49] LABS: BILIRUBIN,TOTAL 0.9 mg/dL (0.2-1); TOT PROT 6.9 g/dl (6.4-8.2)
[2023-04-12 08:39] VITALS: BP 125/70; PULSE 75; RESP 19
[2023-04-12 08:46] LABS: EPI CELLS 19 /uL (0-25.1); HYALINE CASTS 3 /uL (0-3.1); PH,URINE 5.5 (5.0-8.0); URINE APPEARANCE CLEAR; URINE BACTERIA 14 /uL (0-1359); URINE BILIRUBIN NEGATIVE (NEGATIVE); URINE COLOR DK YELLOW; URINE GLUCOSE (UA) NEGATIVE (NEGATIVE); URINE KETONE TRACE (NEGATIVE); URINE LEUK ESTERASE TRACE (NEGATIVE); URINE NITRITE NEGATIVE (NEGATIVE); URINE PROTEIN TRACE (NEGATIVE); URINE RBC 10 /uL (0-23.9); URINE UROBILINOGEN 0.2 mg/dL (0.2-1.0); URINE WBC 61 /uL (0-25.8)
[2023-04-12] MEDS ORDERED: KETOROLAC TROMETHAMINE 15 MG/ML VIAL IVPUSH ONE (09:09)
[2023-04-12] MEDS ORDERED: KETOROLAC TROMETHAMINE 15 MG/ML VIAL ONE (09:53)
== END 2023-04-12 09:30 | disposition home or self-care (01) ==
LOC: JER 04:17
PROC: 3E033NZ Introduction of Analgesics, Hypnotics, Sedatives into Peripheral Vein, Percutaneous Approach (ICD-10-PCS; principal; 2023-04-12)
PROC: 3E0333Z Introduction of Anti-inflammatory into Peripheral Vein, Percutaneous Approach (ICD-10-PCS; 2023-04-12)
DX: S20.211A Contusion of right front wall of thorax, initial encounter (principal); R07.89 Other chest pain; W18.39XA Other fall on same level, initial encounter
CPT/HCPCS: 36415; 71250-TC; 74176-TC; 80053; 81003; 84484; 85025; 85610; 85730; 93005; 93010; 96374; 96375; 99285-25

== ENCOUNTER 2023-12-11 09:45 | Emergency (ER) | payer OTHER ==
[2023-12-11 09:52] VITALS: BP 138/77; PULSE 91; RESP 18; TEMP 98.5; BMI 31.1
[2023-12-11 10:54] LABS: BASO % 0.4 % (0-2.0); EOS % 0.7 % (0-4.5); HEMATOCRIT 41.3 % (32.4-45.2); HEMOGLOBIN 13.6 GM/dL (10.7-15.3); LYMPH % 19.8 % (8-40); MCH 28.2 pg (25.7-33.7); MCHC 32.8 g/dl (32.0-36.0); MEAN CELL VOLUME 85.9 fl (80-96); MEAN PLT VOLUME 8.6 fl (7.5-11.1); MONO % 6.5 % (3.8-10.2); NEUT % 72.6 % (42.8-82.8); PLATELET COUNT 290 10^3/uL (134-434); RBC 4.81 M/mm3 (3.60-5.2); RDW 14.6 % (11.6-15.6); WHITE BLOOD COUNT 11.1 K/mm3 (4.0-10.0)
[2023-12-11 11:12] LABS: POTASSIUM 3.8 mmol/L (3.5-5.1)
[2023-12-11 11:13] LABS: CALCIUM 9.2 mg/dL (8.5-10.1)
[2023-12-11 11:14] LABS: ALBUMIN 3.7 g/dl (3.4-5.0); BLOOD UREA NITROGEN 14.7 mg/dL (7-18)
[2023-12-11 11:17] LABS: CREATININE 0.8 mg/dL (0.55-1.3)
[2023-12-11 11:19] LABS: BILIRUBIN,TOTAL 0.7 mg/dL (0.2-1); TOT PROT 6.9 g/dl (6.4-8.2)
[2023-12-11] MEDS ORDERED: AMOX TR/POT CLAV 875MG/125MG TABLETS (FP) ONE (14:03)
[2023-12-11] MEDS ORDERED: ACETAMINOPHEN 500 MG TABLET (FP) ONE (14:03)
[2023-12-11] MEDS: AMOX TR/POT CLAV 875MG/125MG TABLETS (FP) PO ONE (14:04)
[2023-12-11] MEDS: ACETAMINOPHEN 500 MG TABLET (FP) PO ONE (14:04)
== END 2023-12-11 14:51 | disposition home or self-care (01) ==
LOC: JER 09:45
DX: H02.843 Edema of right eye, unspecified eyelid (principal); H05.011 Cellulitis of right orbit
CPT/HCPCS: 36415; 70486-TC; 80053; 85025; 99284-25